=== PATIENT | female | born 1950 | race Caucasian/White ===

== ENCOUNTER 2016-07-25 13:18 | Outpatient (CLI) | payer MEDICARE, BC ==
[2016-07-25 13:32] LABS: #Basophils 0.1 thou/uL (0.0-0.2); #Eosinphils 0.3 thou/uL (0.0-0.7); #Lymphocytes 2.2 thou/uL (1.20-3.40); #Monocytes 0.5 thou/uL (0.11-0.59); #Neutrophils 4.9 thou/uL (1.40-6.50); %Basophils 1.3 % (0.0-1.0); %Eosinophils 3.3 % (0.0-10.0); %Lymphocytes 28.2 % (21.0-51.0); %Monocytes 5.9 % (0.0-10.0); %Neutrophils 61.3 % (42.0-75.0); Hemoglobin 14.5 g/dL (12.0-16.0); Mean Corpuscular HGB CONC 31.9 g/dL (32.0-36.0); Mean Corpuscular Hemoglobin 30.2 pg (27.0-31.0); Mean Corpuscular Volume 94.6 fl (81.0-99.0); Mean Platelet Volume 8.7 fL (7.4-10.4); Platelet Count 233 thou/uL (130-400); RBC Distribution Width 13.5 % (11.5-14.5); Red Blood Cell (RBC) Count 4.82 mill/uL (4.20-5.40); White Blood Cell (WBC) Count 7.9 thou/uL (4.8-10.8)
[2016-07-25 13:46] LABS: Hemoglobin A1c 6.6 % (4.0-6.0)
[2016-07-25 13:48] LABS: ALT (SGPT) 17 U/L (0-55); AST (SGOT) 16 U/L (5-34); Albumin 4.2 g/dL (3.4-4.8); Alkaline Phosphatase 151 U/L (40-150); Anion Gap 15 mmol/L (10-20); BUN (Urea Nitrogen) 13 mg/dL (9.8-20.1); Bilirubin, Total 0.3 mg/dL (0.2-1.2); Calc. Creatinine Clearance 0 mL/min (70-130); Calcium 9.1 mg/dL (7.8-10.44); Carbon Dioxide 26 mmol/L (23-31); Cardiac Risk 3.2 (Less than 4.5); Chloride 105 mmol/L (98-107); Cholesterol 153 mg/dL (< 200 Desired); Estimated GFR-MDRD 75; Globulin 2.3 g/dL (2.4-3.5); Glucose 142 mg/dL (80-115); HDL Cholesterol 48 mg/dL (>60 Neg Risk); LDL Cholesterol, Calculated 79 mg/dL; Potassium 4.5 mmol/L (3.5-5.1); Protein, Total 6.5 g/dL (5.8-8.1); Sodium 141 mmol/L (136-145); Triglycerides 131 mg/dL (Less than 150)
== END 2016-07-25 13:19 | disposition home or self-care (01) ==
LOC: HPCALD 13:18
PROVIDERS: ATTEND Family Medicine
DX: E78.00 Pure hypercholesterolemia, unspecified (principal); E11.9 Type 2 diabetes mellitus without complications; I10 Essential (primary) hypertension
CPT/HCPCS: 36415; 80053; 80061; 83036; 85025

== ENCOUNTER 2016-09-04 14:55 | Outpatient (CLI) | payer MEDICARE, BC ==
--- NOTE | 2016-09-04 21:20 | CT ---
CT ABDOMEN AND PELVIS WITHOUT CONTRAST 09/04/[address] of the abdomen and pelvis was performed for evaluation of flank pain. Axial slices were ac quired. Then coronal and sagittal reconstructions were done. The lung bases are clear. The liver, spleen, pancreas, adrenal glands and abdominal aorta showed no acute findings. Small bilateral nonobstructing renal calculi are present. In addition, however, there is a 7 mm calc ulus in the proximal left ureter that is causing mild left hydronephrosis. No further stones were se en downstream. The bowel is nondistended. There is no sign of obstruction, free fluid or free air. No inflammatory changes are seen around bowel. CT of the pelvis showed no pelvic masses or inflammatory changes. No free fluid is present. Some min imal diverticula are present. Degenerative changes are present in the spine. IMPRESSION: 1. 7 mm calculus in the proximal left ureter causing mild left hydronephrosis. 2. Bilateral nonobstructing renal calculi. 3. Minimal diverticulosis without findings of diverticulitis. POS: HOME
== END 2016-09-04 14:56 | disposition home or self-care (01) ==
LOC: BURCT 14:55
PROVIDERS: ATTEND Family Medicine
DX: R10.9 Unspecified abdominal pain (principal); N13.2 Hydronephrosis with renal and ureteral calculous obstruction; K57.90 Diverticulosis of intestine, part unspecified, without perforation or abscess without bleeding
CPT/HCPCS: 74176

== ENCOUNTER 2017-11-04 10:16 | Outpatient (CLI) | payer MEDICARE, BC ==
--- NOTE | 2017-11-04 18:45 | RAD ---
RIGHT SHOULDER THREE VIEWS: 11/04/17 No fracture was seen. There is bony spurring at the AC joint, some of which is directed inferiorly an d could potentially cause impingement on nearby tendons. The glenohumeral joint was unremarkable. No fracture was seen. IMPRESSION: AC joint spurring. POS: HOME
== END 2017-11-04 10:17 | disposition home or self-care (01) ==
LOC: BURRAD 10:16
PROVIDERS: ATTEND Family Medicine
DX: M25.511 Pain in right shoulder (principal); M75.91 Shoulder lesion, unspecified, right shoulder

== ENCOUNTER 2021-01-07 23:53 | Emergency (ER) | payer MEDICARE, BC ==
[2021-01-08] MEDS ORDERED: Fentanyl 100 MCG/2 ML VIAL ONE ×2 (00:22→01:30)
[2021-01-08] MEDS ORDERED: Ondansetron PF 4 MG/2 ML Vial ONE ×3 (00:23→04:22)
[2021-01-08 01:23] LABS: Hemoglobin 8.5 g/dL (12.0-16.0); Mean Corpuscular HGB CONC 26.5 g/dL (32.0-36.0); Mean Corpuscular Hemoglobin 24.3 pg (27.0-31.0); Platelet Count 317 thou/uL (130-400); RBC Distribution Width 17.8 % (11.5-14.5); Red Blood Cell (RBC) Count 3.47 mill/uL (4.20-5.40); White Blood Cell (WBC) Count 48.8 thou/uL (4.8-10.8)
[2021-01-08 01:30] LABS: INR-International Normal Ratio 1.3; Prothrombin Time 16.1 sec (12.0-14.7)
[2021-01-08 01:31] LABS: PTT 43.1 sec (22.9-36.1)
[2021-01-08 02:21] LABS: Bilirubin Small (Negative); Blood, Urine Negative (Negative); Clarity Clear (Clear); Glucose, Urine (Dipstick) Negative (Negative); Ketone, Urine Trace mg/dL (Negative); Leukocyte Negative (Negative); Nitrite Negative (Negative); Protein, Urine (Dipstick) 30 mg/dL (Neg-Trace); Urobilinogen 0.2 mg/dL (Less than 2)
[2021-01-08 02:39] LABS: Bacteria/HPF Rare-Few HPF (None Seen); RBC/HPF 0-3 HPF (0-3); WBC/HPF 0-3 HPF (0-3)
[2021-01-08] MEDS ORDERED: HYDROmorphone 0.5 MG/0.5 ML SYRINGE ONE ×2 (03:18→04:22)
[2021-01-08 04:14] LABS: Band 23 % (5-11); Crenated RBC SLIGHT = 1-5 cells (100X) (None Seen); Helmet Cells SLIGHT = 2-5 cells (100X) (0-1/hpf); Large Platelets SLIGHT; Lymphocytes 5 % (21-51); MDiff Complete? YES; Neutrophil 72 % (42-75); Ovalocytes SLIGHT = 2-5 cells (100X) (0-1/hpf); Platelet Morphology Comment Appears Adequate
[2021-01-08] MEDS ORDERED: Benzocaine 20% Spray 60 ML CAN ONE (04:15)
[2021-01-08] MEDS ORDERED: Lidocaine 2% Jelly 5 ML TUBE ONE (04:15)
[2021-01-08] MEDS ORDERED: Piperacillin/Tazobactam 4.5 GM VIAL ONE (04:22)
[2021-01-08 07:02] LABS: Anion Gap 20 mmol/L (10-20); Globulin 3.8 g/dL (2.4-3.5)
[2021-01-08 07:50] LABS: ALT (SGPT) 14 U/L (8-55); AST (SGOT) 14 U/L (5-34); Albumin 2.3 g/dL (3.4-4.8); Alkaline Phosphatase 219 U/L (40-110); BUN (Urea Nitrogen) 48 mg/dL (9.8-20.1); Bilirubin, Total 0.8 mg/dL (0.2-1.2); CK (CPK) Less than 9 U/L (29-168); Calc. Creatinine Clearance 0 mL/min (70-130); Calcium 9.4 mg/dL (7.8-10.44); Carbon Dioxide 26 mmol/L (23-31); Chloride 87 mmol/L (98-107); Glucose 163 mg/dL (83-110); Lipase 5 U/L (8-78); Magnesium 1.8 mg/dL (1.6-2.6); Potassium 4.4 mmol/L (3.5-5.1); Sodium 131 mmol/L (136-145)
[2021-01-08] MEDS ORDERED: Iopamidol 370 76% 100 ML VIAL ONE (14:22)
== END 2021-01-08 05:15 | disposition short-term general hospital (02) ==
LOC: BURERS 23:53
DX: A41.9 Sepsis, unspecified organism (principal); K56.7 Ileus, unspecified; R65.21 Severe sepsis with septic shock; R19.00 Intra-abdominal and pelvic swelling, mass and lump, unspecified site; R60.1 Generalized edema; E78.5 Hyperlipidemia, unspecified; E78.00 Pure hypercholesterolemia, unspecified; I10 Essential (primary) hypertension; E87.70 Fluid overload, unspecified; Z85.831 Personal history of malignant neoplasm of soft tissue; Z79.899 Other long term (current) drug therapy; F17.200 Nicotine dependence, unspecified, uncomplicated
CPT/HCPCS: 36415; 51701; 71045; 74176; 80053; 81003; 81015; 82550; 83605; 83690; 83735; 84484; 85025; 85610; 85730; 87040; 93005; 96365; 96375; 96376; J1170; J2405; J2543; J3010; J3370; Q9967